=== PATIENT | male | born 1955 | race Caucasian/White ===

== ENCOUNTER 2017-07-09 10:42 | Observation (INO) | payer OTHER, SELFPAY ==
[~2017-07-09] VITALS: Ht 177.8 cm; Wt 110.2 kg
[~2017-07-09 10:42] MED LIST: ASPI81CH PO; TAMS.4ER PO
[2017-07-10] MEDS ORDERED: OXYC10TA19 PO (10:05)
== END 2017-07-10 10:37 | disposition home or self-care (01) ==
LOC: ER 10:42 → SURS 10:43 → ER 11:41 → SURS 11:41 → ER 07-10 08:53 → SURS 07-10 08:53
PROVIDERS: Surgery
PROC: 0FT44ZZ Resection of Gallbladder, Percutaneous Endoscopic Approach (ICD-10-PCS; principal; 2017-07-09 12:15)
DX: K80.12 Calculus of gallbladder with acute and chronic cholecystitis without obstruction (principal); N40.0 Benign prostatic hyperplasia without lower urinary tract symptoms; Z88.5 Allergy status to narcotic agent; Z90.89 Acquired absence of other organs; Z79.82 Long term (current) use of aspirin
CPT/HCPCS: 88304; 96365; 96375; 96376; 99285; G0378; J1100; J2250; J2405; J2543; J2710; J3010; J7030; J7120